=== PATIENT | male | born 1995 | race Caucasian/White ===

== ENCOUNTER 2023-02-24 13:43 | Emergency (ER) | payer BC ==
[2023-02-24] MEDS ORDERED: Ondansetron 4 MG Tab.DIS PO ONE (14:04)
== END 2023-02-24 14:57 | disposition home or self-care (01) ==
LOC: FB.ED 13:43
DX: J06.9 Acute upper respiratory infection, unspecified (principal)
CPT/HCPCS: 71045; 99283; 99284; Q0162